=== PATIENT | male | born 1945 | race Caucasian/White ===

== ENCOUNTER 2018-04-03 11:25 | Emergency (ER) | payer MEDICARE, OTHER ==
[~2018-04-03] VITALS: Ht 188 cm; Wt 77.1 kg
--- NOTE | 2018-04-03 12:15 | NUR ---
DR. STEVENS AND VASQUEZ CERAMICS TEACHER IN WITH PT AT THIS TIME
[2018-04-03] MEDS ORDERED: ENALAPRILAT DIHYDRATE 1.25 MG/ML 2ML VIAL IV ONE (12:45)
[2018-04-03] MEDS ORDERED: CLONIDINE HCL 0.1 MG TAB PO ONE (12:45)
--- NOTE | 2018-04-03 17:00 | NUR ---
DECUBITUS ULCER LEFT ANAL HIP ARE CLEANED AND DRESSED PER WOUND NURSE INSTRUCTIONS.
[2018-04-03 17:07] VITALS: BP 177/73
--- NOTE | 2018-04-03 17:30 | NUR ---
DC INSTR GIVEN; DENIES QUESTIONS; DC OUT PER HIS OWN WC TO HANDICAPPED TAXI.
== END 2018-04-03 17:10 | disposition home or self-care (01) ==
LOC: ER 11:25
DX: L89.153 Pressure ulcer of sacral region, stage 3 (principal); I10 Essential (primary) hypertension; G82.20 Paraplegia, unspecified
CPT/HCPCS: 99283

== ENCOUNTER 2018-04-10 11:00 | Outpatient (RCR) | payer OTHER, MEDICARE ==
[2018-04-10] MEDS ORDERED: LIDOCAINE/PRILOCAINE 2.5-2.5% KIT ONE (14:27)
[2018-04-10 16:11] LABS: HEMATOCRIT 40.8 % (38.2-49.6); HEMOGLOBIN 14.5 g/dL (14.0-18.0); MEAN CORPUSCULAR HGB CONC 35.5 g/dL (31-35); MEAN CORPUSCULAR VOLUME 92.7 fL (81-99); PLATELET COUNT 292 x10e3/uL (140-360); RED CELL DISTRIBUTION WIDTH 11.8 % (11.7-14.4)
[2018-04-10 16:30] LABS: ALANINE AMINOTRANSFERASE 27 IU/L (0-55); ALBUMIN 3.3 g/dL (3.5-5.0); ALKALINE PHOSPHATASE 62 IU/L (40-150); ANION GAP 14.9 mmol/L (8-16); BLOOD UREA NITROGEN 8 mg/dL (7-26); BUN/CREATININE RATIO 12 (6-25); CALCIUM 9.1 mg/dL (8.4-10.2); CARBON DIOXIDE 24 mmol/L (22-29); CHLORIDE 99 mmol/L (98-107); CREATININE, SERUM 0.65 mg/dL (0.72-1.25); EST GLOMERULAR FILTRATION RATE > 60 ML/MIN (60-); GLUCOSE 82 mg/dL (74-118); POTASSIUM 3.9 mmol/L (3.5-5.1); SODIUM 134 mmol/L (136-145)
[2018-04-10 19:45] LABS: EOSINOPHILS % (MANUAL) 1 % (0-7); LYMPHOCYTES % (MANUAL) 12 % (19-48); MONOCYTES % (MANUAL) 7 % (3.4-9.0); NEUTROPHILS % (MANUAL) 78 % (40-74); PLATELET ESTIMATE ADEQUATE; PLATELET MORPHOLOGY COMMENT NORMAL; RBC MORPHOLOGY COMMENT NORMAL
== END 2018-04-12 ==
LOC: EDBD → WCC 11:00
PROVIDERS: ATTEND Family Medicine Adult Medicine
DX: L89.43 Pressure ulcer of contiguous site of back, buttock and hip, stage 3 (principal); G82.21 Paraplegia, complete; I10 Essential (primary) hypertension; W34.00XA Accidental discharge from unspecified firearms or gun, initial encounter; Z74.01 Bed confinement status
CPT/HCPCS: 36415; 80053; 84134; 85007; 85027; 87071; 87075; 87186; 87205

== ENCOUNTER 2018-05-01 12:16 | Outpatient (RCR) | payer OTHER, MEDICARE ==
[~2018-05-01 12:16] MED LIST: LIDOCAINE VISC 2% SOLN 15 ML UDC ONE
[2018-05-01] MEDS ORDERED: LIDOCAINE/PRILOCAINE 2.5-2.5% KIT ONE (12:23)
== END 2018-05-13 ==
LOC: WCC 12:16
PROVIDERS: ATTEND Family Medicine Adult Medicine
DX: L89.43 Pressure ulcer of contiguous site of back, buttock and hip, stage 3 (principal); G82.21 Paraplegia, complete; I10 Essential (primary) hypertension; W34.00XA Accidental discharge from unspecified firearms or gun, initial encounter; Z74.01 Bed confinement status

== ENCOUNTER 2018-05-15 12:47 | Outpatient (RCR) | payer MEDICARE, OTHER ==
[2018-05-15] MEDS ORDERED: LIDOCAINE VISC 2% SOLN 15 ML UDC ONE (13:14)
== END 2018-06-12 ==
LOC: WCC 12:47
PROVIDERS: ATTEND Family Medicine Adult Medicine
DX: L89.43 Pressure ulcer of contiguous site of back, buttock and hip, stage 3 (principal); G82.21 Paraplegia, complete; B96.89 Other specified bacterial agents as the cause of diseases classified elsewhere; I10 Essential (primary) hypertension; W34.00XA Accidental discharge from unspecified firearms or gun, initial encounter; Z74.01 Bed confinement status

== ENCOUNTER 2018-07-11 11:57 | Outpatient (RCR) | payer MEDICARE, OTHER ==
[~2018-07-11 11:57] MED LIST changes: -LIDOCAINE VISC 2% SOLN 15 ML UDC ONE; +LIDOCAINE/PRILOCAINE 2.5-2.5% KIT ONE
[2018-07-11] MEDS ORDERED: LIDOCAINE VISC 2% SOLN 15 ML UDC ONE (16:51)
[2018-07-11] MEDS ORDERED: LIDOCAINE/PRILOCAINE 2.5-2.5% KIT ONE (16:51)
== END 2018-07-13 ==
LOC: WCC 11:57
PROVIDERS: ATTEND Family Medicine
DX: L89.43 Pressure ulcer of contiguous site of back, buttock and hip, stage 3 (principal); B96.89 Other specified bacterial agents as the cause of diseases classified elsewhere; G82.21 Paraplegia, complete; I10 Essential (primary) hypertension; W34.00XA Accidental discharge from unspecified firearms or gun, initial encounter; Z74.01 Bed confinement status

== ENCOUNTER 2018-08-01 09:00 | Outpatient (RCR) | payer MEDICARE, OTHER ==
[2018-08-01] MEDS ORDERED: LISINOPRIL10 MG PO (15:18)
[2018-08-10] MEDS ORDERED: NIFEDIPINE ER30 M1 PO (11:57)
[2018-08-10] MEDS ORDERED: LOVENOX40 MG/0.4 SC (11:57)
== END 2018-08-12 ==
LOC: EDBD → WCC 09:00
PROVIDERS: ATTEND Family Medicine Adult Medicine
DX: L89.43 Pressure ulcer of contiguous site of back, buttock and hip, stage 3 (principal); G82.21 Paraplegia, complete; I10 Essential (primary) hypertension; W34.00XA Accidental discharge from unspecified firearms or gun, initial encounter; Z74.01 Bed confinement status
CPT/HCPCS: 87071; 87075; 87186; 87205

== ENCOUNTER 2018-08-01 13:03 | Inpatient (IN) | payer MEDICARE, OTHER ==
[~2018-08-01] VITALS: Ht 188 cm; Wt 86.4 kg
--- OUTSIDE RECORDS SUMMARY | 2018-08-01 13:21 | XMS REPORT ---
Author Author [facility] Address Unknown Phone Unavailable Care Team Providers Care Veterinary Technician Assistant Name Role Phone Unavailable Unavailable Payers Payer Name Policy Type Policy Number Effective Date Expiration Date Problems This patient has no known problems. Allergies, Adverse Reactions, Alerts Allergy Name Allergy Type Status Severity Reaction(s) Onset Date Inactive Date Treating Clinician Comments morphine DA Active SV 2018-06-12 00:00:00 morphine DA Active SV 2015-03-09 00:00:00 Medications This patient has no known medications. Results Test Description Test Time Test Comments Text Results Atomic Results Result Comments COMPREHENSIVE METABOLIC PANEL 2018-07-13 06:03:00 SODIUM (test code=NA) 127 mmol/L 136-145 POTASSIUM (test code=K) 4.3 mmol/L 3.5-5.1 CHLORIDE (test code=CL) 93.0 mmol/L 98-107 CARBON DIOXIDE (test code=CO2) 22.0 mmol/L 21-32 ANION GAP (test code=GAP) 16.3 10-20 GLUCOSE (test code=GLU) 103 mg/dL 74-106 BLOOD UREA NITROGEN (test code=BUN) 5 mg/dL 7-18 GLOMERULAR FILTRATION RATE (test code=GFR) > 60 mL/min >=60 Estimated GFR by using Modified MDRD formula.Chronic kidney disease is defined as either kidney damageor GFR <60 mL/min/1.73 m2 for >3 months. CREATININE (test code=CREAT) 0.60 mg/dL 0.7-1.3 BUN/CREATININE RATIO (test code=BUN/CREA) 8.3 10-20 TOTAL PROTEIN (test code=PROT) 6.9 gram/dL 6.4-8.2 ALBUMIN (test code=ALB) 3.4 g/dL 3.4-5.0 GLOBULIN (test code=GLOB) 3.5 gram/dL 2.7-4.2 ALBUMIN/GLOBULIN RATIO (test code=A/G) 1.0 0.75-1.50 CALCIUM (test code=CA) 8.5 mg/dL 8.5-10.1 BILIRUBIN TOTAL (test code=BILT) 0.40 mg/dL 0.0-1.0 SGOT/AST (test code=AST) 31 IUnit/L 15-37 SGPT/ALT (test code=ALT) 31 IUnit/L 12-78 ALKALINE PHOSPHATASE TOTAL (test code=ALKP) 80 IUnit/L 45-117 Note change in reference range due to change in reagent. [id number] 06:03:00* Test Item Value Reference Range Comments ALCOHOL (test code=ALC) 154 mg/dL 0.0-3.0 INTERPRETIVE DATA NOTE: POSITIVE SCREENING RESULTS SHOULD BE CONSIDERED PRESUMPTIVE.WHEN COLLECTED FOR MEDICAL PURPOSES ONLY. SPECIMEN WILL NOTBE COLLECTED BY CHAIN OF CUSTODY.IF A CONFIRMATION OF POSITIVE RESULTS IS DESIRED, ACONFIRMATION TEST MUST BE REQUESTED BY THE PHYSICIAN AT ANADDITIONAL CHARGE TO THE PATIENT. COMPREHENSIVE METABOLIC [id number] 05:51:00* Test Item Value Reference Range Comments SODIUM (test code=NA) 127 mmol/L 136-145 POTASSIUM (test code=K) 4.3 mmol/L 3.5-5.1 CHLORIDE (test code=CL) 93.0 mmol/L 98-107 CARBON DIOXIDE (test code=CO2) mmol/L 21-32 ANION GAP (test code=GAP) 10-20 GLUCOSE (test code=GLU) mg/dL 74-106 BLOOD UREA NITROGEN (test code=BUN) mg/dL 7-18 GLOMERULAR FILTRATION RATE (test code=GFR) mL/min >=60 CREATININE (test code=CREAT) mg/dL 0.7-1.3 BUN/CREATININE RATIO (test code=BUN/CREA) 10-20 TOTAL PROTEIN (test code=PROT) gram/dL 6.4-8.2 ALBUMIN (test code=ALB) g/dL 3.4-5.0 GLOBULIN (test code=GLOB) gram/dL 2.7-4.2 ALBUMIN/GLOBULIN RATIO (test code=A/G) 0.75-1.50 CALCIUM (test code=CA) mg/dL 8.5-10.1 BILIRUBIN TOTAL (test code=BILT) mg/dL 0.0-1.0 SGOT/AST (test code=AST) IUnit/L 15-37 SGPT/ALT (test code=ALT) IUnit/L 12-78 ALKALINE PHOSPHATASE TOTAL (test code=ALKP) IUnit/L 45-117 [id number] 05:51:00* Test Item Value Reference Range Comments ALCOHOL (test code=ALC) mg/dL 0-3 CBC W/AUTO [id number] 05:40:00* Test Item Value Reference Range Comments WHITE BLOOD CELL (test code=WBC) 9.9 K/mm3 4.5-12.5 RED BLOOD CELL (test code=RBC) 4.26 mill/mm3 4.0-5.8 HEMOGLOBIN (test code=HGB) 13.9 gram/dL 13.0-17.5 HEMATOCRIT (test code=HCT) 39.8 % 42.0-52.0 MEAN CELL VOLUME (test code=MCV) 93.4 fL 80-98 MEAN CELL HGB (test code=MCH) 32.6 picogram 27.0-33.0 MEAN CELL HGB CONCETRATION (test code=MCHC) 34.9 gram/dL 33.0-36.0 RED CELL DISTRIBUTION WIDTH (test code=RDW) 12.0 % 11.6-16.2 RED CELL DISTRIBUTION WIDTH SD (test code=RDW-SD) 41.1 fL 37.0-51.0 PLATELET COUNT (test code=PLT) 333 K/mm3 150-450 MEAN PLATELET VOLUME (test code=MPV) 8.6 fL 6.7-11.0 NEUTROPHIL % (test code=NT%) 83.9 % 39.0-69.0 IMMATURE GRANULOCYTE % (test code=IG%) 0.6 % 0.0-5.0 LYMPHOCYTE % (test code=LY%) 7.7 % 25.0-55.0 MONOCYTE % (test code=MO%) 7.3 % 0.0-10.0 EOSINOPHIL % (test code=EO%) 0.4 % 0.0-5.0 BASOPHIL % (test code=BA%) 0.1 % 0.0-1.0 NUCLEATED RBC % (test code=NRBC%) 0.0 % 0-0 NEUTROPHIL # (test code=NT#) 8.33 K/mm3 1.8-7.7 IMMATURE GRANULOCYTE # (test code=IG#) 0.06 x10 3/uL 0-0.03 LYMPHOCYTE # (test code=LY#) 0.76 K/mm3 1.0-5.0 MONOCYTE # (test code=MO#) 0.72 K/mm3 0-0.8 EOSINOPHIL # (test code=EO#) 0.04 K/mm3 0.0-0.5 BASOPHIL # (test code=BA#) 0.01 K/mm3 0.0-0.2 NUCLEATED RBC # (test code=NRBC#) 0.00 K/mm3 0.0-0.1 MANUAL DIFF REQUIRED (test code=MDIFF) NO - XR CHEST 1 [id number] 05:17:00 [place]: St: REG Name: LYNSEY BETANCOURT [facility], 1928–[facility] : [birth year] Age/S: 72/M [address] [facility] Unit #: [id number] Loc: [place] [address] Phys: Lore Dudley MD Acct: [id number] Dis Date: Status: REG ER PHONE #: [phone] Exam Date: 07/13/2018512 FAX #: [phone] Reason: FALL EXAMS: CPT CODE: [id number] XR CHEST 1 V [id number] EXAM: Chest 2 views. Location: R16 HISTORY: Upper back pain, COMPARISON: 06/12/2018 FINDINGS: PA and lateral views of the c hest were obtained. There is prominence of interstitial markings particularly in the lung bases which are likely unchanged. No focal airsp gertrude opacities are seen. There are no definite pleural effusions or pneumo thorax. Cardiac silhouette is mildly enlarged. . Aor ta and mediastinal contours are within normal limits. Visualized skeletal structures are within normal limits. IMPRESSION: Stable interstitial prominence of the lung bases may represent technical laboratory asst clint fibrotic changes. Otherwise no active disease in t he chest. at 0 517 Reported and signed by: Rai Huffman M.D. CC : Technologist: Felicita oliver Trnscrd Date/Time/By: 07/13/2018 (0517) : By: [email or web address] Orig Print D/T: S: 07/13/2018 (0582) PAGE 1 Signed Report B-TYPE NATRIURETIC [id number] 16:36:00* Test Item Value Reference Range Comments B-TYPE NATRIURETIC PEPTIDE (test code=BNP) 63.48 pgram/mL 0-100 BASIC METABOLIC [id number] 16:15:00* Test Item Value Reference Range Comments SODIUM (test code=NA) 132 mmol/L 136-145 POTASSIUM (test code=K) 4.1 mmol/L 3.5-5.1 CHLORIDE (test code=CL) 100.0 mmol/L 98-107 CARBON DIOXIDE (test code=CO2) 27.0 mmol/L 21-32 ANION GAP (test code=GAP) 9.1 10-20 GLUCOSE (test code=GLU) 101 mg/dL 74-106 BLOOD UREA NITROGEN (test code=BUN) 9 mg/dL 7-18 GLOMERULAR FILTRATION RATE (test code=GFR) > 60 mL/min >=60 Estimated GFR by using Modified MDRD formula.Chronic kidney disease is defined as either kidney damageor GFR <60 mL/min/1.73 m2 for >3 months. CREATININE (test code=CREAT) 0.60 mg/dL 0.7-1.3 BUN/CREATININE RATIO (test code=BUN/CREA) 15.0 10-20 CALCIUM (test code=CA) 8.7 mg/dL 8.5-10.1 [id number] 16:15:00* Test Item Value Reference Range Comments TROPONIN-I (test code=TROPI) <0.015 ng/mL 0-0.045 CBC W/O [id number] 15:52:00* Test Item Value Reference Range Comments WHITE BLOOD CELL (test code=WBC) 8.1 K/mm3 4.5-12.5 RED BLOOD CELL (test code=RBC) 4.59 mill/mm3 4.0-5.8 HEMOGLOBIN (test code=HGB) 15.2 gram/dL 13.0-17.5 HEMATOCRIT (test code=HCT) 43.2 % 42.0-52.0 MEAN CELL VOLUME (test code=MCV) 94.1 fL 80-98 MEAN CELL HGB (test code=MCH) 33.1 picogram 27.0-33.0 MEAN CELL HGB CONCETRATION (test code=MCHC) 35.2 gram/dL 33.0-36.0 RED CELL DISTRIBUTION WIDTH (test code=RDW) 12.0 % 11.6-16.2 PLATELET COUNT (test code=PLT) 322 K/mm3 150-450 MEAN PLATELET VOLUME (test code=MPV) 8.9 fL 6.7-11.0 CBC W/O [id number] 15:48:00* Test Item Value Reference Range Comments WHITE BLOOD CELL (test code=WBC) K/mm3 4.5-12.5 RED BLOOD CELL (test code=RBC) mill/mm3 4.0-5.8 HEMOGLOBIN (test code=HGB) 15.2 gram/dL 13.0-17.5 HEMATOCRIT (test code=HCT) 43.2 % 42.0-52.0 MEAN CELL VOLUME (test code=MCV) fL 80-98 MEAN CELL HGB (test code=MCH) picogram 27.0-33.0 MEAN CELL HGB CONCETRATION (test code=MCHC) gram/dL 33.0-36.0 RED CELL DISTRIBUTION WIDTH (test code=RDW) % 11.6-16.2 PLATELET COUNT (test code=PLT) K/mm3 150-450 MEAN PLATELET VOLUME (test code=MPV) fL 6.7-11.0 - XR CHEST 1 [id number] 15:01:00 FAX: Fausto Carrasquillo DO [place]: B St: REG Name: LYNSEY BETANCOURT [facility] : [birth year] Age/S: 72/M [address] [facility]: [id number] Loc: [place] [address] Phys: Fausto Carrasquillo DO Acct: [id number] Dis Date: Status: REG ER PHONE #: [phone] Exam Date: 06/12/2018 5224 FAX #: [phone] Reason: Shortness of Breath EXAMS: CPT CODE: [id number] XR CHEST 1 V [id number] REASON FOR EXAM: Shortness of Breath EXAM ORDER DATE: 06/12/2018 2:15 PM Ordering MIsadora.: Fausto Carrasquillo DO PROCEDURE: - XR CHEST 1 V COMPARISON: 3:49 PM FINDINGS: Portable AP frontal view of the c hest obtained at 2:43 PM shows streaky interstitial markings in the left b ase. There is no evidence of effusion. The heart size is within normal maya its. Pulmonary vasculatures are unremarkable. IMPRESSION: New finding surgical clips in the right base. Bullous emphysema of the right base and chronic interstitial disease of the left base at 1506 Reported and signed by: Raj Fair M.D. CC: Fausto Carrasquillo DO Technologist: Samantha SMALLS(R) Trnscrd Date/Time/By: 06/12/2018 (6459) : By: jessi ANNA Orig Print D/T: S: 06/12/2018 (0180) PAGE 1 Signed Report
[2018-08-01] MEDS ORDERED: HYDRALAZINE HCL 20 MG/ML VIAL IV PRN (14:30)
[2018-08-01] MEDS ORDERED: ONDANSETRON HCL INJ 2MG/ML 2ML 2 MG/ML VIAL IV PRN (14:30)
[2018-08-01] MEDS ORDERED: ACETAMINOPHEN 325 MG TAB PO PRN (14:30)
[2018-08-01] MEDS ORDERED: ZOLPIDEM TARTRATE 5 MG TAB PO PRN (14:30)
[2018-08-01 14:36] VITALS: BP 175/74
--- NOTE | 2018-08-01 14:36 | NUR ---
RECEIVED PATIENT FROM ADMISSIONS AROUND 1344. HE IS IN STABLE CONDITION. ADMISSION HISTORY AND PHYSICAL ASSESSMENT COMPLETED AND DOCUMENTED. IV LINE TO LEFT FOREARM STARTED, SALINE FLUSHED. PATIENT ORIENTED TO ROOM AND POLICIES. CALL LIGHT WITHIN REACH. BED IN THE LOWEST POSITION.
[2018-08-01 14:37] VITALS: BP 175/74
[2018-08-01] MEDS: MORPHINE SULFATE INJ 4 MG/ML INJ 1ML IV PRN (15:13)
[2018-08-01 15:17] LABS: BASOPHILS % 0.4 % (0.0-1.0); EOSINOPHILS # (AUTO) 0.2 (0.0-0.4); EOSINOPHILS % 3.2 % (0.0-6.0); HEMATOCRIT 35.3 % (38.2-49.6); HEMOGLOBIN 12.4 g/dL (14.0-18.0); LYMPHOCYTES # (AUTO) 0.9 (1.0-3.2); LYMPHOCYTES % 13.3 % (18.0-39.1); MEAN CORPUSCULAR HEMOGLOBIN 32.8 pg (28-32); MEAN CORPUSCULAR HGB CONC 35.1 g/dL (31-35); MEAN CORPUSCULAR VOLUME 93.4 fL (81-99); MONOCYTES # (AUTO) 1.1 (0.2-0.8); MONOCYTES % 15.6 % (4.4-11.3); NEUTROPHILS # (AUTO) 4.5 (2.1-6.9); NEUTROPHILS % 66.9 % (38.7-80.0); PLATELET COUNT 361 x10e3/uL (140-360); RED BLOOD COUNT 3.78 x10e6/uL (4.3-5.7); RED CELL DISTRIBUTION WIDTH 12.1 % (11.7-14.4)
[2018-08-01] MEDS ORDERED: LISINOPRIL10 MG PO (15:18)
--- NOTE | 2018-08-01 15:28 | NUR ---
PATIENT OFF THE UNIT FOR MRI.
[2018-08-01] MEDS ORDERED: GADOBENATE DIMEGLUMINE 1 ML IV ONE (15:30)
[2018-08-01 15:45] LABS: ALANINE AMINOTRANSFERASE 21 IU/L (0-55); ALBUMIN/GLOBULIN RATIO 0.9 (0.8-2.0); ALKALINE PHOSPHATASE 65 IU/L (40-150); ANION GAP 12.5 mmol/L (8-16); BLOOD UREA NITROGEN 7 mg/dL (7-26); BUN/CREATININE RATIO 10 (6-25); CALCIUM 8.9 mg/dL (8.4-10.2); CARBON DIOXIDE 24 mmol/L (22-29); CHLORIDE 99 mmol/L (98-107); CREATININE, SERUM 0.73 mg/dL (0.72-1.25); EST GLOMERULAR FILTRATION RATE > 60 ML/MIN (60-); GLUCOSE 98 mg/dL (74-118); POTASSIUM 4.5 mmol/L (3.5-5.1); SODIUM 131 mmol/L (136-145)
[2018-08-01 16:08] LABS: ERYTHROCYTE SEDIMENTATION RATE 26 mm/hr (0-13)
[2018-08-01 16:10] VITALS: BP 164/74
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
--- NOTE | 2018-08-01 16:42 | NUR ---
PATIENT BACK FROM MRI AT THIS TIME.
[2018-08-01] MEDS: HYDROCODONE/APAP 5MG-325MG TAB PO PRN (18:33)
--- NOTE | 2018-08-01 18:54 | NUR ---
REPORT GIVEN TO ONCOMING NURSE, PATIENT IS RESTING IN BED. NO ACUTE DISTRESS NOTED. CALL LIGHT WITHIN REACH. BED IN THE LOWEST POSITION.
--- NOTE | 2018-08-01 18:56 | NUR ---
PAGED DR. CORDERO TO NOTIFY HIM THAT CONSULT FOR ID DOCTOR HAS BEEN CALLED IN BUT MD HAS NOT RETURNED THE CALL OR SEEN THE PATIENT AND ASKED IF HE WOULD LIKE TO START PATIENT ON BROAD SPECTRUM ABX, NO ANSWER, LVM.
[2018-08-01 19:00] VITALS: BP 157/65
--- NOTE | 2018-08-01 19:00 | NUR ---
PT IS RESTING IN BED. RESPIRATION IS EVEN AND UNLABORED, NO DISTRESS NOTED. BED IN THE LOWEST POSITION, LOCKED, BED ALARM ON, AND CALL LIGHT WITHIN REACH. WILL CONTINUE TO MONITOR.
[2018-08-01 20:17] VITALS: BP 157/65
[2018-08-02] VITALS (7 sets, daily range): BP systolic 144–180; BP diastolic 68–86
[2018-08-02] MEDS: HYDROCODONE/APAP 5MG-325MG TAB PO PRN ×4 (00:07→22:00)
[2018-08-02 06:50] LABS: BASOPHILS % 0.4 % (0.0-1.0); EOSINOPHILS # (AUTO) 0.3 (0.0-0.4); EOSINOPHILS % 5.8 % (0.0-6.0); HEMATOCRIT 32.6 % (38.2-49.6); HEMOGLOBIN 11.5 g/dL (14.0-18.0); LYMPHOCYTES # (AUTO) 1.1 (1.0-3.2); LYMPHOCYTES % 19.2 % (18.0-39.1); MEAN CORPUSCULAR HEMOGLOBIN 32.9 pg (28-32); MEAN CORPUSCULAR HGB CONC 35.3 g/dL (31-35); MEAN CORPUSCULAR VOLUME 93.1 fL (81-99); MONOCYTES # (AUTO) 0.8 (0.2-0.8); MONOCYTES % 14.6 % (4.4-11.3); NEUTROPHILS # (AUTO) 3.3 (2.1-6.9); NEUTROPHILS % 59.3 % (38.7-80.0); PLATELET COUNT 331 x10e3/uL (140-360); RED CELL DISTRIBUTION WIDTH 12.1 % (11.7-14.4)
--- NOTE | 2018-08-02 06:50 | NUR ---
RECEIVED PATIENT RESTING IN BED. NO ACUTE DISTRESS NOTED. NO S/S OF PAIN NOTED. CALL LIGHT WITHIN REACH. BED IN THE LOWEST POSITION.
[2018-08-02 07:08] LABS: ALANINE AMINOTRANSFERASE 21 IU/L (0-55); ALBUMIN 2.8 g/dL (3.5-5.0); ALBUMIN/GLOBULIN RATIO 0.9 (0.8-2.0); ALKALINE PHOSPHATASE 63 IU/L (40-150); ANION GAP 11.3 mmol/L (8-16); BLOOD UREA NITROGEN 8 mg/dL (7-26); BUN/CREATININE RATIO 12 (6-25); CALCIUM 9.6 mg/dL (8.4-10.2); CARBON DIOXIDE 25 mmol/L (22-29); CHLORIDE 97 mmol/L (98-107); CREATININE, SERUM 0.68 mg/dL (0.72-1.25); EST GLOMERULAR FILTRATION RATE > 60 ML/MIN (60-); GLUCOSE 98 mg/dL (74-118); POTASSIUM 4.3 mmol/L (3.5-5.1); SODIUM 129 mmol/L (136-145)
--- NOTE | 2018-08-02 09:16 | Diagnostic Imaging Report ---
MRI of the sacrum with and without contrast. History: Infected bedsore left side. Osteomyelitis. Fall. Paraplegia. Technique: Multiplanar multisequence MRI of the sacrum with and without intravenous contrast. 15 cc IV gadolinium contrast material was administered. Findings: There is abnormal skin thickening with apparent skin ulceration at the posterior left lower sacrum. There is underlying abnormal soft tissue edema and ill-defined contrast enhancement with extension into the underlying inferior aspect of the sacrum/coccyx slightly to the left of midline. This is best seen on series 5 image 18 through 23. This is likely due to a developing phlegmon. No well-formed drainable fluid collection/abscess is seen. There is associated marrow replacement and mild bone marrow edema consistent with osteomyelitis. Diffuse osteopenia. Diffuse muscle atrophy. Scattered degenerative changes most pronounced at the visualized lower lumbar spine. The visualized neurovascular bundles are intact. Impression: Findings consistent with cellulitis, skin ulceration, developing phlegmon and underlying osteomyelitis at the inferior aspect of the sacrum/coccyx. No well-formed drainable fluid collection/abscess is seen. Signed by: Dr. Sergei Burnette M.D. on 08/02/2018 9:13 AM
--- NOTE | 2018-08-02 09:28 | NUR ---
CALLED SOPHIA RODRIGUEZ TO GIVE HER RESULTS OF MRI OF SACRUM, NO ANSWER, LVM.
[2018-08-02] MEDS ORDERED: SODIUM CHLORIDE 0.9% 250ML 250 ML ONE (09:35)
[2018-08-02] MEDS: VANCOMYCIN 1GM/NS 250 ML 250 ML IV SCH ×2 (09:45→21:04)
--- NOTE | 2018-08-02 10:49 | NUR ---
ORDER RECEIVED FOR LTAC. MET W THE PT AT THE BEDSIDE. EXPLAINED THE PURPOSE OF LTAC VS SNF. CHOICES WERE GIVEN. STATES HE LIVES IN [place] AND WOULD LIKE TO GO TO [facility] IF HIS INSURANCE IS IN NETWORK. [place] HAWLEY NOTIFIED. CONFIRMED THEY ARE IN NETWORK W [facility].
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
--- NOTE | 2018-08-02 13:42 | NUR ---
SOPHIA RODRIGUEZ CALLED BACK AND GAVE HER RESULTS OF MRI OF SACRUM.
[2018-08-02] MEDS ORDERED: PIPER-TAZ 3.375 GM 50 ML IV SCH (14:00)
--- NOTE | 2018-08-02 14:19 | NUR ---
PT C/O ITCHING WHEN GETTING ZOSYN, STOPPED ABT, FLUSHED LINE. CALLED SOPHIA RODRIGUEZ WITH FINDINGS. NEW ORDERS RECEIVED.
[2018-08-02] MEDS ORDERED: DIPHENHYDRAMINE HCL 25 MG CAP PO NR (14:30)
[2018-08-02] MEDS: LEVOFLOXACIN 750MG/D5W 150ML 150 ML IV SCH (14:43)
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
[2018-08-02] MEDS ORDERED: LISINOPRIL 10 MG TAB PO SCH (15:45)
[2018-08-02] MEDS ORDERED: ONDANSETRON HCL 4 MG ORAL DISINTEGRATING TAB PO PRN (15:45)
--- NOTE | 2018-08-02 18:37 | NUR ---
WOUND CARE COMPLETED AT THIS TIME.
--- NOTE | 2018-08-02 18:54 | NUR ---
REPORT GIVEN TO ONCOMING NURSE, PATIENT IS RESTING IN BED. NO ACUTE DISTRESS NOTED, NO S/S OF PAIN NOTED. CALL LIGHT WITHIN REACH. BED IN THE LOWEST POSITION. BED ALARM ON.
--- NOTE | 2018-08-02 20:33 | Diagnostic Imaging Report ---
EXAMINATION: CHEST XRAY LINE PLACEMENT COMPARISON: None INDICATION: Line placement ^PICC LINE ^[id number] ^2009 DISCUSSION: Frontal view of the chest obtained at 2017 hours. HEART AND MEDIASTINUM: The heart is mildly enlarged LINES: Right PICC line terminates in the SVC. No pneumothorax LUNGS: The lungs are diffusely hyperinflated consistent with COPD. There is reticulation of the lung bases, left greater than right, suggestive of early fibrosis. Calcified pleural plaque in the base of the right lung cannot be excluded. Pulmonary vascular markings are normal. PLEURA: No pleural effusion or pneumothorax. BONES AND SOFT TISSUES: No focal osseous lesion. The soft tissues are normal. IMPRESSION: Right PICC line terminates in the SVC. No pneumothorax. COPD. Bibasilar reticulation suggestive of early fibrosis. Cardiomegaly. No vascular congestion. Signed by: Dr. Abiel Skaggs MD on 08/02/2018 8:29 PM
[2018-08-02] MEDS: NIFEDIPINE CR 30 MG TAB PO SCH (21:04)
[2018-08-03] VITALS (7 sets, daily range): BP systolic 102–161; BP diastolic 55–72
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
[2018-08-03] MEDS: HYDROCODONE/APAP 5MG-325MG TAB PO PRN ×3 (04:15→22:47)
[2018-08-03 06:36] LABS: BASOPHILS % 0.4 % (0.0-1.0); EOSINOPHILS # (AUTO) 0.2 (0.0-0.4); EOSINOPHILS % 2.9 % (0.0-6.0); HEMATOCRIT 35.9 % (38.2-49.6); HEMOGLOBIN 12.7 g/dL (14.0-18.0); LYMPHOCYTES # (AUTO) 0.7 (1.0-3.2); LYMPHOCYTES % 8.3 % (18.0-39.1); MEAN CORPUSCULAR HEMOGLOBIN 32.9 pg (28-32); MEAN CORPUSCULAR HGB CONC 35.4 g/dL (31-35); MONOCYTES # (AUTO) 0.7 (0.2-0.8); MONOCYTES % 9.2 % (4.4-11.3); NEUTROPHILS # (AUTO) 6.1 (2.1-6.9); NEUTROPHILS % 78.3 % (38.7-80.0); PLATELET COUNT 366 x10e3/uL (140-360); RED BLOOD COUNT 3.86 x10e6/uL (4.3-5.7); RED CELL DISTRIBUTION WIDTH 11.9 % (11.7-14.4)
[2018-08-03 07:11] LABS: ANION GAP 11.9 mmol/L (8-16); BLOOD UREA NITROGEN 6 mg/dL (7-26); BUN/CREATININE RATIO 8 (6-25); CARBON DIOXIDE 23 mmol/L (22-29); CHLORIDE 96 mmol/L (98-107); CREATININE, SERUM 0.71 mg/dL (0.72-1.25); EST GLOMERULAR FILTRATION RATE > 60 ML/MIN (60-); GLUCOSE 113 mg/dL (74-118); POTASSIUM 3.9 mmol/L (3.5-5.1); SODIUM 127 mmol/L (136-145)
[2018-08-03] MEDS: VANCOMYCIN 1GM/NS 250 ML 250 ML IV SCH ×2 (09:12→22:37)
[2018-08-03] MEDS: LEVOFLOXACIN 750MG/D5W 150ML 150 ML IV SCH (13:41)
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
--- NOTE | 2018-08-03 17:00 | NUR ---
Pt in bed. aox4 and able to verbalize needs. Pt denies any pain at this time. Wound care done this aftertoon to left leg and left buttock. Colostomy in place and draining soft brown stool. PICC line in place and dressing is dry and intact.
[2018-08-03] MEDS: MORPHINE SULFATE INJ 4 MG/ML INJ 1ML IV PRN (18:41)
--- NOTE | 2018-08-03 18:58 | NUR ---
RECEIVED REPORT FROM PREVIOUS NURSE. CALL LIGHT WITHIN REACH. PATIENT IN BED.
--- NOTE | 2018-08-03 19:00 | NUR ---
Received report from previous nurse. Call light within reach. Patient in bed.
[2018-08-03] MEDS: NIFEDIPINE CR 30 MG TAB PO SCH (21:50)
--- NOTE | 2018-08-03 22:30 | NUR ---
Lab called about patient having vanco trough of 12.1. Called Dr. Lynch about vanco trough and Dr. Lynch said to give the next dose of vanco.
[2018-08-04] VITALS (7 sets, daily range): BP systolic 108–143; BP diastolic 59–66
[2018-08-04 04:56] LABS: BASOPHILS % 0.5 % (0.0-1.0); EOSINOPHILS # (AUTO) 0.3 (0.0-0.4); EOSINOPHILS % 4.6 % (0.0-6.0); HEMATOCRIT 33.6 % (38.2-49.6); HEMOGLOBIN 11.6 g/dL (14.0-18.0); LYMPHOCYTES # (AUTO) 1.3 (1.0-3.2); LYMPHOCYTES % 20.2 % (18.0-39.1); MEAN CORPUSCULAR HEMOGLOBIN 32.3 pg (28-32); MEAN CORPUSCULAR HGB CONC 34.5 g/dL (31-35); MEAN CORPUSCULAR VOLUME 93.6 fL (81-99); MONOCYTES # (AUTO) 0.7 (0.2-0.8); MONOCYTES % 11.2 % (4.4-11.3); NEUTROPHILS # (AUTO) 3.9 (2.1-6.9); NEUTROPHILS % 62.9 % (38.7-80.0); PLATELET COUNT 306 x10e3/uL (140-360); RED BLOOD COUNT 3.59 x10e6/uL (4.3-5.7); RED CELL DISTRIBUTION WIDTH 11.9 % (11.7-14.4)
[2018-08-04 05:15] LABS: ANION GAP 10.3 mmol/L (8-16); BLOOD UREA NITROGEN 8 mg/dL (7-26); BUN/CREATININE RATIO 11 (6-25); CALCIUM 8.7 mg/dL (8.4-10.2); CARBON DIOXIDE 26 mmol/L (22-29); CHLORIDE 98 mmol/L (98-107); CREATININE, SERUM 0.74 mg/dL (0.72-1.25); EST GLOMERULAR FILTRATION RATE > 60 ML/MIN (60-); GLUCOSE 109 mg/dL (74-118); POTASSIUM 4.3 mmol/L (3.5-5.1); SODIUM 130 mmol/L (136-145)
--- NOTE | 2018-08-04 06:58 | NUR ---
Gave report to oncoming nurse. Patient in bed. Call light within reach.
[2018-08-04] MEDS: VANCOMYCIN 1GM/NS 250 ML 250 ML IV SCH ×2 (09:30→21:31)
[2018-08-04] MEDS: HYDROCODONE/APAP 5MG-325MG TAB PO PRN ×2 (09:47→16:35)
[2018-08-04] MEDS: LEVOFLOXACIN 750MG/D5W 150ML 150 ML IV SCH (15:04)
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
[2018-08-04] MEDS: ENOXAPARIN SOD INJ 40 MG/0.4 ML SYR SC SCH (16:35)
--- NOTE | 2018-08-04 18:45 | NUR ---
Pt in bed. Aox4 and able to verbalize needs. Denies any pain at this time. Pt is able to verbalize needs. Wound care treatment done this afternoon.
--- NOTE | 2018-08-04 19:08 | NUR ---
Received report from previous nurse. Call light within reach. patient in bed.
[2018-08-04] MEDS: NIFEDIPINE CR 30 MG TAB PO SCH (21:31)
[2018-08-05] VITALS (7 sets, daily range): BP systolic 113–140; BP diastolic 59–66
[2018-08-05] MEDS: HYDROCODONE/APAP 5MG-325MG TAB PO PRN ×2 (00:25→21:29)
--- NOTE | 2018-08-05 07:08 | NUR ---
Gave report to oncoming nurse. call light within reach. patient in bed.
--- NOTE | 2018-08-05 07:30 | NUR ---
PT UP IN BED AWAKE DENIES PAIN,WISDOM TO BSD
[2018-08-05] MEDS: VANCOMYCIN 1GM/NS 250 ML 250 ML IV SCH ×2 (08:34→23:00)
--- NOTE | 2018-08-05 12:44 | NUR ---
drsg to sacral and left leg changed as ordered.
[2018-08-05] MEDS: LEVOFLOXACIN 750MG/D5W 150ML 150 ML IV SCH (15:00)
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
[2018-08-05] MEDS: ENOXAPARIN SOD INJ 40 MG/0.4 ML SYR SC SCH (16:34)
--- NOTE | 2018-08-05 19:20 | NUR ---
Patient visited in room during nursing rounds. Patient alert and oriented x3. Pt paraplegic (no sensation and paralysis from waist down to both legs). Stage 3 pressure ulcer on left buttock (covered with Allevyn dressing). Wound on left lateral calf with dressing (C/D/I). Pt able to turn self in bed. Call hernandez within reach.
[2018-08-05] MEDS: NIFEDIPINE CR 30 MG TAB PO SCH (21:00)
--- NOTE | 2018-08-05 22:39 | NUR ---
Spoke with Dr. Fowler to report Vanc trough level of 20.0. MD stated it was ok to still keep giving dose of Vancomycin 1gm Q12hr at this time. Next Vancomycin trough check will be prior to next 4th dose.
[2018-08-05] MEDS ORDERED: SODIUM CHLORIDE 0.9% 250ML 250 ML ONE (22:49)
[2018-08-06] VITALS (8 sets, daily range): BP systolic 129–152; BP diastolic 59–70
--- NOTE | 2018-08-06 07:00 | NUR ---
received am report from rn. pt is resting comfortably in bed, no s/s of distress. call light within reach, bed in lowest position, side rails up.
[2018-08-06] MEDS: VANCOMYCIN 1GM/NS 250 ML 250 ML IV SCH ×2 (12:21→23:14)
[2018-08-06] MEDS: HYDROCODONE/APAP 5MG-325MG TAB PO PRN ×2 (12:21→18:42)
[2018-08-06] MEDS ORDERED: POLYETHYLENE GLYCOL 3350 17 GM PACK PO ONE (13:15)
--- NOTE | 2018-08-06 13:25 | NUR ---
CLEMENTE SPOKE WITH DR CORDERO WHO STATES PEER TO PEER FOR LTAC WAS DENIED BY INSURANCE ORDERS FOR SNF EVAL CLEMENTE CALLED NO JO SUPERVISOR FRONT WITH [facility] AT [phone] SHE GAVE LIST OF IN NETWORK SNF'S FOLLOWS: -[facility] -[facility] -[facility]ICAL RESORT -[facility] [place] [facility] [place])
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
[2018-08-06] MEDS: LEVOFLOXACIN 750MG/D5W 150ML 150 ML IV SCH (15:47)
--- NOTE | 2018-08-06 16:33 | NUR ---
CM INITIATED RTF AND PASRR. [facility] IS NOT IN NETWORK AND UNABLE TO TAKE PATIENT. DISCHARGE CM GRACE MO TO RECEIVE NEW FACILITY CHOICE AND COMPLETE RTF AND PASRR TOMORROW WITH FACILITY NAME AND ADDRESS. RTF AND PASRR GIVEN TO GRACE MO CM.
[2018-08-06] MEDS: DOCUSATE SODIUM 100 MG CAP PO PRN (17:24)
[2018-08-06] MEDS: ENOXAPARIN SOD INJ 40 MG/0.4 ML SYR SC SCH (17:26)
--- NOTE | 2018-08-06 19:50 | NUR ---
PT IS RESTING IN BED. RESPIRATION IS EVEN AND UNLABORED, NO DISTRESS NOTED. BED IN THE LOWEST POSITION, LOCKED, AND CALL LIGHT WITHIN REACH. WILL CONTINUE TO MONITOR.
[2018-08-06] MEDS: NIFEDIPINE CR 30 MG TAB PO SCH (20:14)
--- NOTE | 2018-08-06 22:44 | Consultation ---
DATE OF CONSULTATION: 08/06/[address] Lynch, consult requested to Dr. Rylan HAUSER, Plastic Surgery. CHIEF COMPLAINT: Left ischial pressure sore infected. HISTORY OF PRESENT ILLNESS: The patient is a 72-year-old paraplegic male, who was admitted from the emergency room. He is well known to the Wound Care Clinic. He has a chronic left ischial pressure sore. The patient now has infection with cultures positive for multiple bacteria. The consultation is now requested to Plastic Surgery for surgical debridement of left ischial pressure sore. The patient's physical exam shows a 5 x 5 cm stage III left ischial pressure sore with purulent drainage and slough. LABORATORY DATA: The most current labs are showing a white count of 6.2 and a platelet count of 305. His sedimentation rate is 23. He has a hemoglobin of 11.6. IMPRESSION: Left ischial pressure sore, infected. PLAN: I have explained the risks, benefits, and alternatives of the treatment with the patient. He will be taken to the OR tomorrow for a surgical debridement. Thank you for allowing me to participate in the care of your patient. Rohit Fagan MD ER/MODL /[id number]
[2018-08-07] VITALS (8 sets, daily range): BP systolic 141–151; BP diastolic 66–85
[2018-08-07 06:13] LABS: BASOPHILS % 0.7 % (0.0-1.0); EOSINOPHILS # (AUTO) 0.2 (0.0-0.4); EOSINOPHILS % 3.6 % (0.0-6.0); HEMATOCRIT 32.2 % (38.2-49.6); HEMOGLOBIN 11.5 g/dL (14.0-18.0); LYMPHOCYTES # (AUTO) 0.7 (1.0-3.2); LYMPHOCYTES % 12.5 % (18.0-39.1); MEAN CORPUSCULAR HEMOGLOBIN 33.1 pg (28-32); MEAN CORPUSCULAR HGB CONC 35.7 g/dL (31-35); MEAN CORPUSCULAR VOLUME 92.8 fL (81-99); MONOCYTES # (AUTO) 0.7 (0.2-0.8); NEUTROPHILS # (AUTO) 4.1 (2.1-6.9); NEUTROPHILS % 70.7 % (38.7-80.0); PLATELET COUNT 307 x10e3/uL (140-360); RED BLOOD COUNT 3.47 x10e6/uL (4.3-5.7); RED CELL DISTRIBUTION WIDTH 11.9 % (11.7-14.4)
[2018-08-07 06:27] LABS: BLOOD UREA NITROGEN 12 mg/dL (7-26); BUN/CREATININE RATIO 16 (6-25); CALCIUM 8.9 mg/dL (8.4-10.2); CARBON DIOXIDE 24 mmol/L (22-29); CHLORIDE 100 mmol/L (98-107); CREATININE, SERUM 0.73 mg/dL (0.72-1.25); EST GLOMERULAR FILTRATION RATE > 60 ML/MIN (60-); GLUCOSE 104 mg/dL (74-118); SODIUM 131 mmol/L (136-145)
[2018-08-07] MEDS ORDERED: BACITRACIN 50,000 UNIT VIAL ONE (08:51)
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
--- NOTE | 2018-08-07 11:22 | NUR ---
Received pt from PACU s/p I&D of left buttocks with dressing clean/dry/intact, prado is draining small yellow urine per report received from [facility] [employer], prado was emptied before transfer. Pt is AAOx3 in no acute distress noted, resp even and unlabored denies having any pain or discomfort. Dressing to left leg is saturated and will change dressing today. Pt is instructed to use the call light for assistance, bed alarm is on for safety and bed is in the lowest position, locked, and bed rails upx2. Will continue to monitor. Current vitals t95.3, hr 71, bp147/66, resp 19, sao2 99% on RA.
[2018-08-07] MEDS: VANCOMYCIN 1GM/NS 250 ML 250 ML IV SCH (11:33)
--- NOTE | 2018-08-07 11:47 | NUR ---
SPOKE WITH PT, HE STATES HIS CHOICE OF IN NETWORK SNF IS [facility] IN [place], SIGNED CHOICE FILED IN CHART FILLED OUT RTF AND PUT AT NURSES STATION. LET FACILITY KNOW TRANSFER WHEN ACCEPTED STATUS. [id number], [facility] [address] CALL REPORT TO [phone]
[2018-08-07] MEDS: HYDROCODONE/APAP 5MG-325MG TAB PO PRN (14:35)
[2018-08-07] MEDS: LEVOFLOXACIN 750MG/D5W 150ML 150 ML IV SCH (14:35)
[2018-08-07] MEDS ORDERED: SODIUM CHLORIDE 0.9% 250ML 250 ML ONE (15:57)
--- NOTE | 2018-08-07 15:59 | NUR ---
NURSE CALLED PT CHANGED MIND AND WANTS TO GO TO [facility], CALLED REP TO COME EVAL
[2018-08-07] MEDS: ENOXAPARIN SOD INJ 40 MG/0.4 ML SYR SC SCH (17:35)
--- NOTE | 2018-08-07 17:53 | NUR ---
Mr Maddox with pharmacy made aware that pt's vancomycin trough 32.3 states he will make adjustments.
[2018-08-07] MEDS ORDERED: LIDOCAINE HCL 2% LOCAL INJ 5 ML SDV VIAL INJ ONE (18:04)
[2018-08-07] MEDS ORDERED: PHENYLEPHRINE HCL 1% 10 MG/ML VIAL ONE (18:04)
[2018-08-07] MEDS ORDERED: SEVOFLURANE INHAL SOLN 250 ML PEN BTL ONE (18:04)
[2018-08-07] MEDS ORDERED: ONDANSETRON HCL INJ 2MG/ML 2ML 2 MG/ML VIAL ONE (18:04)
[2018-08-07] MEDS ORDERED: PROPOFOL IV EMULSION 10 MG/ML 20 ML VIAL ONE (18:04)
[2018-08-07] MEDS ORDERED: MIDAZOLAM HCL 2 MG/2 ML VIAL ONE (18:46)
[2018-08-07] MEDS ORDERED: FENTANYL CITRATE/PF 100MCG/2 ML INJ ONE (18:46)
--- NOTE | 2018-08-07 19:27 | NUR ---
Bedside change of shift report given to GRACE Hernandez. Pt is resting comfortably in bed watching TV, in no acute distress noted. Marsh is draining well to gravity. Pt denies pain at this time instructed to call for assistance, call light and personal items are within reach, bed is in the lowest position, locked and side rails upx2.
--- NOTE | 2018-08-07 20:50 | Operative Report ---
DATE OF PROCEDURE: 08/07/2018 SURGEON: Rohit Fagan MD PREOPERATIVE DIAGNOSIS: Stage IV left ischial pressure sore. POSTOPERATIVE DIAGNOSIS: Stage IV left ischial pressure sore. PROCEDURES: Excision of stage IV left ischial pressure ulcer. ANESTHESIA: General. HISTORY: The patient is a 72-year-old male who is paraplegic and has a stage IV left ischial pressure ulcer which is infected and has devitalized tissue. Risks, benefits, alternatives of treatment were discussed with the patient. He is prepared to undergo the procedure as outlined. PROCEDURE IN DETAIL: The patient was marked preoperatively in the holding area. He was brought to the operating theater and after the induction of adequate general anesthesia, he was prepped and draped in a supine position where he is prepped and draped in a right lateral decubitus position. A time-out was performed. The procedure was begun by excising all of the devitalized tissue in the depth of the stage IV also which goes down to the ischial tuberosity. Once all this tissue has been sharply excised, and the wound was made hemostatic using the electrocautery. At this point, using a power lavage system, several L of antibiotic containing solution was used to lavage the wound. Hemostasis was then attended to once again and made absolute using the electrocautery. The wound was packed with a saline-soaked Kerlix and an ABD was applied and paper tape was used to hold the ABD in place. The patient was placed supine. He was returned to the recovery room in satisfactory condition and then returned to his hospital bed for further care and treatment. Rohit Fagan MD ER/MODL /[id number]
[2018-08-07] MEDS: NIFEDIPINE CR 30 MG TAB PO SCH (21:21)
[2018-08-07] MEDS: MORPHINE SULFATE INJ 4 MG/ML INJ 1ML IV PRN (21:25)
[2018-08-08] VITALS (8 sets, daily range): BP systolic 117–143; BP diastolic 58–70
[2018-08-08] MEDS: HYDROCODONE/APAP 5MG-325MG TAB PO PRN ×3 (05:47→22:29)
[2018-08-08 06:15] LABS: BASOPHILS # (AUTO) 0.1 (0.0-0.1); BASOPHILS % 0.7 % (0.0-1.0); EOSINOPHILS # (AUTO) 0.2 (0.0-0.4); EOSINOPHILS % 3.1 % (0.0-6.0); HEMATOCRIT 30.8 % (38.2-49.6); HEMOGLOBIN 10.9 g/dL (14.0-18.0); LYMPHOCYTES # (AUTO) 0.9 (1.0-3.2); LYMPHOCYTES % 12.9 % (18.0-39.1); MEAN CORPUSCULAR HEMOGLOBIN 32.8 pg (28-32); MEAN CORPUSCULAR HGB CONC 35.4 g/dL (31-35); MEAN CORPUSCULAR VOLUME 92.8 fL (81-99); MONOCYTES # (AUTO) 0.9 (0.2-0.8); MONOCYTES % 12.6 % (4.4-11.3); NEUTROPHILS # (AUTO) 4.7 (2.1-6.9); PLATELET COUNT 313 x10e3/uL (140-360); RED BLOOD COUNT 3.32 x10e6/uL (4.3-5.7); RED CELL DISTRIBUTION WIDTH 11.8 % (11.7-14.4)
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
[2018-08-08 07:51] LABS: ANION GAP 12.2 mmol/L (8-16); BLOOD UREA NITROGEN 13 mg/dL (7-26); BUN/CREATININE RATIO 17 (6-25); CALCIUM 8.7 mg/dL (8.4-10.2); CARBON DIOXIDE 24 mmol/L (22-29); CHLORIDE 97 mmol/L (98-107); CREATININE, SERUM 0.76 mg/dL (0.72-1.25); EST GLOMERULAR FILTRATION RATE > 60 ML/MIN (60-); GLUCOSE 104 mg/dL (74-118); POTASSIUM 4.2 mmol/L (3.5-5.1); SODIUM 129 mmol/L (136-145)
[2018-08-08] MEDS ORDERED: VANCOMYCIN 1GM/NS 250 ML 250 ML IV SCH ×2 (11:00→15:00)
--- NOTE | 2018-08-08 12:15 | NUR ---
RTF AND PASRR COMPLETED AND FILED IN PACKET.
--- NOTE | 2018-08-08 13:15 | NUR ---
NOTIFIED MARIA ALEJANDRA CORTES ABOUT RANDOM VANC-TROUGH. ORDERED DIFFERENT VANCOMYCIN DOSE AND TO ALSO DRAW ANOTHER VANC-TROUGH IN THE AM. ORDERS CARRIED OUT.
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
--- NOTE | 2018-08-08 14:20 | NUR ---
CHANGED PATIENT'S SACRAL AND LEFT LEG DRESSING PER TITLE LAWYER JABARIO WOUND ORDER.
[2018-08-08] MEDS: LEVOFLOXACIN 750MG/D5W 150ML 150 ML IV SCH (14:45)
[2018-08-08] MEDS: VANCOMYCIN HCL 1.5 GM in SODIUM CHLORIDE 0.9% 250ML 300 ML IV SCH (15:00)
[2018-08-08] MEDS: MORPHINE SULFATE INJ 4 MG/ML INJ 1ML IV PRN (16:26)
[2018-08-08] MEDS: ENOXAPARIN SOD INJ 40 MG/0.4 ML SYR SC SCH (17:00)
[2018-08-08] MEDS ORDERED: SODIUM CHLORIDE 0.9% 250ML 250 ML ONE (17:26)
--- NOTE | 2018-08-08 18:26 | NUR ---
PATIENT IS LAYING IN HIGH-FOWLERS POSITION, NO S/S OF DISTRESS, COLOSTOMY BAG IN CLEAN AND INTACT. PICC LINE IS CLEAN AND INTACT. BED IN LOWEST POSITION, SIDE RAILS UP X2, AND CALL ANGLIN WITHIN REACH.
--- NOTE | 2018-08-08 20:02 | NUR ---
RECEIVE DPT IN BED AOX3 .NO ACUTE DISTRESS NOTED ..LEFT BUTTOCK STAGE 3 'LEFT LATERAL CAFE UNSTAGEABLE .DENIES PAIN REFUSED BED BATH
[2018-08-08] MEDS: NIFEDIPINE CR 30 MG TAB PO SCH (22:19)
[2018-08-09] VITALS (7 sets, daily range): BP systolic 124–170; BP diastolic 60–72
[2018-08-09] MEDS: HYDROCODONE/APAP 5MG-325MG TAB PO PRN ×2 (05:45→15:19)
--- NOTE | 2018-08-09 07:06 | NUR ---
REPORT GIVEN TO THE ONCOMING NURSE
--- NOTE | 2018-08-09 07:30 | NUR ---
The pt. is in bed awake and without discomfort. Bed rails are elevated times 2 with nurse call system in reach. Dr Brownlee visited and needs results of cultures done at [facility].
[2018-08-09] MEDS: LEVOFLOXACIN 500 MG TAB PO SCH (08:49)
[2018-08-09] MEDS: DOCUSATE SODIUM 100 MG CAP PO PRN (12:47)
[2018-08-09] MEDS: MORPHINE SULFATE INJ 4 MG/ML INJ 1ML IV PRN ×2 (12:47→20:19)
--- NOTE | 2018-08-09 14:02 | NUR ---
PT ACCEPTED TO ROOM [address] RODRIGUEZ CARE CALL REPORT TO [phone], CALLED NURSE TO NOTIFY CLEAR FROM CASE MANAGEMENT PERSPECTIVE.
--- NOTE | 2018-08-09 14:20 | NUR ---
Dr. Lynch was notified of the availability of a SNF bed abd he does not want the pt to leave this p m but plans to dc in the morning. Dr. Fowler was paged for orders concerning the duration of abx therapy as well as okay to discharge. Return call pending.
--- NOTE | 2018-08-09 14:32 | NUR ---
WOUND CARE VAC CHANGE: PATIENT IS POST OP SURGICAL DEBRIDEMENT OF UNSTAGEABLE PRESSURE ULCER TO SACRUM ON 08/07/[address] ARNDT. POST SURGICAL MEASURMENTS ARE 5X4.5X3.2CM WITH UNDERMINING FROM 4 O'CLOCK TO 11 O'CLOCK 3CM. PRESSURE ULCER TO SACRUM IS NOW A STAGE 3 PRESSURE ULCER. NO SXS OF INFECTION NOTED AND ULCER IS NO LONGER MALODOROUS. WOUND VAC CHANGED PER THE ORDERS; PATIENT TOLERATED PROCEDURE WELL.
[2018-08-09] MEDS: VANCOMYCIN HCL 1.5 GM in SODIUM CHLORIDE 0.9% 250ML 300 ML IV SCH (15:08)
--- NOTE | 2018-08-09 15:28 | NUR ---
Dr. Fowler returned the call and orders received the pt. is to continue antibiotic therapy that he is currently receiving for 3 more weeks and follow up with [facility] wound care. If the pt. goes home use [facility].
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
[2018-08-09] MEDS: ENOXAPARIN SOD INJ 40 MG/0.4 ML SYR SC SCH (17:01)
--- NOTE | 2018-08-09 19:24 | NUR ---
Patient received lying in bed. AAO x 3. Patient had no complaints of pain. No signs of respiratory distress. Marsh catheter , colostomy bag and wound Vac to left buttock in place. Fall precautions implemented. Patient instructed to call for assistance when needed. Call light within reach.
[2018-08-09] MEDS: NIFEDIPINE CR 30 MG TAB PO SCH (21:19)
[2018-08-10] VITALS: BP 130/68
[2018-08-10 04:00] VITALS: BP 133/63
[2018-08-10] MEDS: HYDROCODONE/APAP 5MG-325MG TAB PO PRN ×2 (06:19→14:45)
--- NOTE | 2018-08-10 06:44 | NUR ---
Patient resting comfortably. Walking rounds done. Shift report given to oncoming nurse.
--- NOTE | 2018-08-10 07:29 | NUR ---
PATIENT IN BED RESTING ON THE RIGHT SIDE, NO DISTRESS NOTED. WISDOM CATHETER DRAINING CLEAR YELLOW URINE, WOUND AND WOUND VAC TO BUTTOCKS, LEFT LATERAL FOOT WOUND WITH DRESSING DRY AND INTACT. BED IN LOWER POSITION, CALL LIGHT AT REACH.
[2018-08-10 07:35] VITALS: BP 111/75
[2018-08-10 08:51] VITALS: BP 111/75
[2018-08-10] MEDS: LEVOFLOXACIN 500 MG TAB PO SCH (09:26)
[2018-08-10] MEDS: MORPHINE SULFATE INJ 4 MG/ML INJ 1ML IV PRN (11:40)
--- NOTE | 2018-08-10 11:55 | NUR ---
PATIENT C/O LEFT BUTTOCK PAIN. PAIN MEDICATION ADMINISTERED ORDERED. WILL CLOSELY MONITOR.
[2018-08-10] MEDS ORDERED: LOVENOX40 MG/0.4 SC (11:57)
[2018-08-10] MEDS ORDERED: NIFEDIPINE ER30 M1 PO (11:57)
[2018-08-10 13:08] VITALS: BP 118/52
--- NOTE | 2018-08-10 14:40 | NUR ---
EXPLAINED IMM LETTER TO PT. VERBALIZED UNDERSTANDING. IMM LETTER WAS SIGNED AND COPY TO CHART AND COPY TO PT.
--- NOTE | 2018-08-10 14:45 | NUR ---
PATIENT IS ABOUT TO BE TRANSFERRED TO [facility]. REPORT CALLED AND GIVEN TO RECEIVING NURSE. BROTHER KANIKA NORTON NOTIFIED OF TRANSFER. IN BED WITH CALL LIGHT AT REACH.
--- NOTE | 2018-08-10 15:41 | NUR ---
PATIENT TRANSFERRED TO SNF. WOUND VAC REMOVED AND WET TO DRY DRESSING APPLIED. PICC LINE TO RIGHT UPPER ARM INTACT AND PATENT. LEFT UNIT ON STRETCHER PER AMBULANCE IN STABLE CONDITION.
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
== END 2018-08-10 15:40 | DRG 515 ==
LOC: MED/SURG3 13:19
PROVIDERS: ADMIT Internal Medicine; ATTEND Internal Medicine
PROC: 02HV33Z Insertion of Infusion Device into Superior Vena Cava, Percutaneous Approach (ICD-10-PCS; 2018-08-02)
PROC: 0QB30ZZ Excision of Left Pelvic Bone, Open Approach (ICD-10-PCS; principal; 2018-08-07 10:02)
DX: M86.8X8 Other osteomyelitis, other site (principal); L89.154 Pressure ulcer of sacral region, stage 4; L89.153 Pressure ulcer of sacral region, stage 3; E87.1 Hypo-osmolality and hyponatremia; G82.20 Paraplegia, unspecified; B95.61 Methicillin susceptible Staphylococcus aureus infection as the cause of diseases classified elsewhere; Z16.24 Resistance to multiple antibiotics; L08.9 Local infection of the skin and subcutaneous tissue, unspecified; G89.4 Chronic pain syndrome; I10 Essential (primary) hypertension; B96.89 Other specified bacterial agents as the cause of diseases classified elsewhere; Z16.29 Resistance to other single specified antibiotic; W34.00XS Accidental discharge from unspecified firearms or gun, sequela; L08.89 Other specified local infections of the skin and subcutaneous tissue; Z93.3 Colostomy status; I87.2 Venous insufficiency (chronic) (peripheral); F17.200 Nicotine dependence, unspecified, uncomplicated; B18.2 Chronic viral hepatitis C
CPT/HCPCS: 36415; 36569; 71045; 72197; 80048; 80053; 80202; 85025; 85651; 86140; 87040; J1650; J2001; J2250; J2270; J2370; J2405; J2543; J3010; J3370; J7050; Q0162

== ENCOUNTER 2018-10-03 10:49 | Outpatient (RCR) | payer MEDICARE, OTHER ==
[~2018-10-03 10:49] MED LIST changes: -LIDOCAINE/PRILOCAINE 2.5-2.5% KIT ONE; +LISINOPRIL10 MG PO; +LOVENOX40 MG/0.4 SC; +NIFEDIPINE ER30 M1 PO
[2018-10-03] MEDS ORDERED: MUPIROCIN 2% OINT 22 GM TUBE ONE (18:43)
[2018-10-03] MEDS ORDERED: LIDOCAINE/PRILOCAINE 2.5-2.5% KIT ONE (18:43)
== END 2018-10-13 ==
LOC: WCC 10:49
PROVIDERS: ATTEND Family Medicine Adult Medicine
DX: L89.43 Pressure ulcer of contiguous site of back, buttock and hip, stage 3 (principal); L03.818 Cellulitis of other sites; S91.309A Unspecified open wound, unspecified foot, initial encounter; G82.21 Paraplegia, complete; I10 Essential (primary) hypertension; A49.01 Methicillin susceptible Staphylococcus aureus infection, unspecified site; B96.89 Other specified bacterial agents as the cause of diseases classified elsewhere; W34.00XA Accidental discharge from unspecified firearms or gun, initial encounter; Z74.01 Bed confinement status

== ENCOUNTER 2018-10-18 14:31 | Outpatient (RCR) | payer OTHER | END 2018-11-12 | LOC: WCC 14:31 | PROVIDERS: ATTEND Family Medicine | DX: S91.309A Unspecified open wound, unspecified foot, initial encounter (principal); L89.43 Pressure ulcer of contiguous site of back, buttock and hip, stage 3; L03.818 Cellulitis of other sites; G82.21 Paraplegia, complete; I10 Essential (primary) hypertension; A49.01 Methicillin susceptible Staphylococcus aureus infection, unspecified site; B96.89 Other specified bacterial agents as the cause of diseases classified elsewhere; W34.00XA Accidental discharge from unspecified firearms or gun, initial encounter; Z74.01 Bed confinement status ==